=== PATIENT | male | born 2000 | race Caucasian/White ===

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

== ENCOUNTER → 2022-05-18 | Outpatient (CLI) | payer BC ==
[~2022-05-18] MED LIST: VYVANSE10 MG PO; ZOFRAN ODT4 MG PO
== END ==
LOC: COL.RAD 15:37
DX: N50.811 Right testicular pain (principal)